=== PATIENT | female | born 1950 | race Caucasian/White ===

== ENCOUNTER 2021-06-25 08:44 | Outpatient (CLI) | payer MEDICARE, SELFPAY ==
--- NOTE | ~2021-06-25 | XR_ITS ---
XR hip RT 2V w AP pelvis 06/25/2021 09:02 Indication: Right hip pain Procedure: 3 views right hip including AP pelvis Comparison: No prior studies for comparison. Findings: There is mild osteoarthritis of the hips. There is lower lumbar spondylosis. No acute fract ure or traumatic malalignment. Impression: 1: No acute bone or joint abnormality. 2: Mild osteoarthritis of the hips. Reviewed, dictated and finalized at location [facility]. CHOOL ASSISTANT Impression: 1: No acute bone or joint abnormality. 2: Mild osteoarthritis of the hips.
== END 2021-06-25 08:45 | disposition home or self-care (01) ==
PROVIDERS: PCP Nurse Practitioner Family; Visit Provider Orthopaedic Surgery
DX: M16.11 Unilateral primary osteoarthritis, right hip (principal)
CPT/HCPCS: 73502

== ENCOUNTER 2021-11-17 09:13 | Emergency (ER) | payer MEDICARE, SELFPAY ==
--- NOTE | ~2021-11-17 | CT_ITS ---
EXAMINATION: CT brain wo con DATE: 11/17/2021 10:31 INDICATION: Fall from bed. No patient memory of fall or whether she struck her head. TECHNIQUE: Computed tomography (CT) of the head was performed without intravenous contrast. The mA wa s adjusted according to patient size. Iterative reconstruction technique was employed. Exam dose: 60 5.33 mGy-cm total exam DLP. COMPARISON: None FINDINGS: Bilateral carotid siphon internal carotid artery calcifications. There is nonspecific dimin ished attenuation of the subcortical and periventricular cerebral white matter, likely due to chronic small vessel ischemic changes. Minimal basal ganglia calcification on the left. No intracranial mass lesion or hemorrhage or cerebrovascular accident. No midline shift or mass effec t. No subdural or epidural hematoma. Moderate cerebral and cerebellar volume loss. Included paranasal sinuses and mastoid air cells are unremarkable. No fracture or bone destruction of the cranial vault. IMPRESSION: No skull fracture or acute intracranial finding Cerebral atherosclerosis and chronic small vessel ischemic changes of the cerebral white matter Reviewed, dictated and finalized at [facility]. Reviewed, dictated and finalized at location [facility]. IMPRESSION: No skull fracture or acute intracranial finding Cerebral atherosclerosis and chronic small vessel ischemic changes of the cereb ral white matter
[2021-11-17 09:15] VITALS: BP 152/63; PULSE 95; RESP 16; TEMP 37.2; O2SAT 95
--- NOTE | 2021-11-17 09:49 | ED.SKABFB ---
HPI - Skin/Abscess/Foreign Bdy General Chief complaint: Skin/Abscess/Foreign Body <Malathi Valel PA-C - Last Filed: 11/17/21 13:20> Stated complaint: Rash <Malathi Valle PA-C - Last Filed: 11/17/21 13:20> Time Seen by Provider: 11/17/21 09:28 <Malathi Valle PA-C - Last Filed: 11/17/21 13:20> Source: patient <HOLGER Ronquillo Last Filed: 11/17/21 13:20> Mode of arrival: ambulatory <HOLGER Ronquillo Last Filed: 11/17/21 13:20> Limitations: no limitations <Malathi Valle PA-C - Last Filed: 11/17/21 13:20> History of Present Illness HPI narrative: This is a 71-year-old female that presents to the emergency department for rash noted over the last couple of days. Reports she had a fever of 103. This was followed by developing a rash on her extremities. Reports this morning the rash on her lower legs started to look more purple which prompted her to be seen. No new medications. Her family member reports he found her on the floor in the middle of the night 2 nights ago. She is unsure why she was on the floor or how she got there. She denies any certain joint pain or injuries. Denies vomiting, numbness or weakness. <Malathi Valle PA-C - Last Filed: 11/17/21 13:20> Related Data Home medications: Home Medications Medication Instructions Recorded Confirmed amlodipine 10 mg tablet (Norvasc) 10 mg PO DAILY 06/01/21 08/08/21 atorvastatin 20 mg tablet (Lipitor) 20 mg PO DAILY 06/01/21 08/08/21 blood sugar diagnostic (True 06/01/21 08/08/21 Metrix Glucose Test Strip) carboxymethylcellulose sodium 0.5 1 drp EACH EYE BID 06/01/21 08/08/21 % eye drops in a dropperette (Refresh Plus) dulaglutide 1.5 mg/0.5 mL 1.5 mg subcut WEEKLY 06/01/21 08/08/21 subcutaneous pen injector (Trulicity) fenofibric acid (choline) 135 mg 135 mg PO DAILY 06/01/21 08/08/21 capsule,delayed release (Trilipix) insulin glargine 100 unit/mL (3 10 unit subcut BID 06/01/21 08/08/21 mL) subcutaneous pen (Lantus Solostar U-100 Insulin) krill oil 500 mg capsule mg PO 06/01/21 08/08/21 lancets 28 gauge (TRUEplus Lancets) 06/01/21 08/08/21 metformin 1,000 mg tablet 1,000 mg PO BIDWMEAL 06/01/21 08/08/21 metoprolol succinate 50 mg 75 mg PO DAILY 06/01/21 08/08/21 tablet,extended release 24 hr (Toprol XL) oxybutynin chloride 5 mg 5 mg PO DAILY 06/01/21 08/08/21 tablet,extended release 24 hr (Ditropan XL) pen needle, diabetic 31 gauge x 06/01/21 08/08/21 5/16 (TRUEplus Pen Needle) valsartan 160 1 tablet PO DAILY 06/01/21 08/08/21 mg-hydrochlorothiazide 12.5 mg tablet (Diovan HCT) meloxicam 15 mg tablet 15 mg PO DAILY 06/25/21 08/08/21 tramadol 50 mg tablet 50 mg PO Q6H PRN 06/25/21 08/08/21 <Malathi Valle PA-C - Last Filed: 11/17/21 13:20> Allergies/Adverse reactions: Allergies Allergy/AdvReac Type Severity Reaction Status Date / Time No Known Allergies Allergy Verified 08/08/21 14:35 <Malathi Valle PA-C - Last Filed: 11/17/21 13:20> Review of Systems Review of Systems: CONSTITUTIONAL: Reports fever GASTROINTESTINAL: Denies vomiting SKIN: Reports rash. Denies itching. MUSCULOSKELETAL: Denies back pain, joint pain, or myalgia. <Malathi Valle PA-C - Last Filed: 11/17/21 13:20> All systems reviewed & are unremarkable except as noted in HPI and below <Malathi Valle PA-C - Last Filed: 11/17/21 13:20> [facility] Past Medical History Medical History: Medical History Diabetes Hyperlipidemia Hypertension <Malathi Valle PA-C - Last Filed: 11/17/21 13:20> Surgical History Surgical History: Surgical History History of right knee joint replacement <Malathi Valle PA-C - Last Filed: 11/17/21 13:20> Social History Social History: Social History
[2021-11-17 10:04] LABS: Basophils Percent Auto 0.3 % (0.2-1.2); Eosinophils Absolute Auto 0.2 K/mm3 (0-0.3); Eosinophils Percent Auto 3.4 % (0-4.4); Hematocrit 36.7 % (37.0-47.0); Hemoglobin 11.9 g/dL (12.0-15.0); Immature Granulocyte Absolute 0.02 K/mm3 (0.00-0.031); Immature Granulocyte Percent A 0.3 % (0-0.5); Lymphocytes Absolute Auto 0.99 K/mm3 (0.9-3.2); Lymphocytes Percent Auto 15.5 % (18.3-44.2); Mean Corpuscular HGB Conc 32.4 g/dl (32-36); Mean Corpuscular Hemoglobin 30.4 pg (26-34); Mean Corpuscular Volume 93.6 fl (80-100); Mean Platelet Volume 9.5 fl (7.4-10.4); Monocytes Absolute Auto 0.3 K/mm3 (0.1-0.6); Monocytes Percent Auto 4.4 % (2.6-8.5); Neutrophils Absolute Auto 4.9 K/mm3 (1.3-6.7); Neutrophils Percent Auto 76.1 % (45.5-73.1); Platelet Count Result 127 k/mm3 (150-375); Red Blood Count 3.92 M/mm3 (4.2-5.4); White Blood Count 6.4 K/mm3 (4.5-10.0)
[2021-11-17 10:16] LABS: INR 1.3; Prothrombin Time 15.2 Seconds (11.1-14.7)
[2021-11-17 10:16] LABS: Alanine Aminotransferase 37 U/L (6-35); Alkaline Phosphatase 35 U/L (38-126); Anion Gap 8 mmol/L (8-16); Aspartate Amino Transferase 44 U/L (14-36); Blood Urea Nitrogen 19 mg/dL (7-17); CRP 6.9 mg/dL (<1.0); Calcium 8.9 mg/dL (8.4-10.2); Carbon Dioxide 27 mmol/L (22-30); Chloride 99 mmol/L (98-107); Estimated CRCL calculation 63 ml/min; Estimated Glomerular Filt Rate > 60; Glucose 182 mg/dL (65-110); Potassium 3.6 mmol/L (3.4-5.0); Sodium 134 mmol/L (137-145)
[2021-11-17 10:17] LABS: Partial Thromboplastin Time 29.1 SECONDS (22.3-36.8)
[2021-11-17 10:32] LABS: Mucus Urine Rare /lpf; Squamous Epithelial Cell Urine Few /hpf (Few); WBC Urine >75 /hpf
[2021-11-17 10:35] LABS: Appearance Urine Cloudy (Clear); Bilirubin Urine 1+ (Negative); Blood Urine 1+ (Negative); Color Urine Yellow (Yellow); Glucose Urine UA Negative (Negative); Ketones Urine Negative (Negative); Leukocyte Esterase Ur 3+ LEU/UL (Negative); Nitrate Urine Negative (Negative); Protein Urine Trace mg/dL (Negative); Specific Grav Ur 1.025 (1.001-1.035); Urobilinogen Urine 0.2 mg/dL (<2.0); pH Urine 5.5 (5.0-9.0)
[2021-11-17 10:36] LABS: Add Urine Microscopic? YES
[2021-11-17 10:40] LABS: SARS-CoV-2 RNA PCR Negative
[2021-11-17 10:52] LABS: Erythrocyte Sedimentation Rate 47 mm/hr (0-20)
== END 2021-11-17 13:51 | disposition home or self-care (01) ==
PROVIDERS: Physician Assistant; Emergency Provider Emergency Medicine; PCP Nurse Practitioner Family
DX: N30.00 Acute cystitis without hematuria (principal); R21 Rash and other nonspecific skin eruption; Z20.822 Contact with and (suspected) exposure to COVID-19; E11.9 Type 2 diabetes mellitus without complications; E78.5 Hyperlipidemia, unspecified; I10 Essential (primary) hypertension; Z87.891 Personal history of nicotine dependence; Z96.651 Presence of right artificial knee joint; I67.2 Cerebral atherosclerosis; Z79.84 Long term (current) use of oral hypoglycemic drugs; Z79.4 Long term (current) use of insulin; Z79.899 Other long term (current) drug therapy
CPT/HCPCS: 36415; 70450; 80053; 81001; 85025; 85610; 85652; 85730; 86140; 87086; 87088; 99284; C9803; U0003; U0005

== ENCOUNTER 2022-12-10 15:34 | Outpatient (RCR) | payer MEDICARE, SELFPAY ==
--- NOTE | 2022-12-10 16:21 | PTOPEVAL1 ---
Assessment and note entered by Eduardo Betancourt Evaluation Information Assessment Status Evaluation Diagnosis vertigo, imbalance Onset 12/09/22 Subjective Information Pt. reports that she first began developing dizziness in July of 2020. Pt. reports that she has been to a specialist, but has not been given a diagnosis. She reports that she cannot lay in her bed without getting dizzy. She reports that looking up overhead will also trigger her dizziness. She reports that she does get nauseous on occasion. She states that sleeping upright on the sofa is the best way for her to sleep. She reports that her goal is to be able to get rid of her dizziness. Reported Pain Level Pain Score 0: Self Report Assessment PT Clinical Summary Pt. enters the clinic with positive testing for left sided BPPV. She responds well to Belem manuever with reduction in dizziness and nystagmus . Continued skilled PT is indicated for monitoring pt. progress with home treatment and to continues to reduce dizzziness with IADL's. Plan of Care Interventions Neuro Re-education,Patient/Caregiver Educati, Therapeutic Activities,Therapeutic Exercise Other Interventions canalith repositioning PT Services Indicated Yes Treatment Frequency and Continue Rx for 2 additional visits focusing on Duration reduction of dizziness and advancing to [place] and [place] exercise as indicated. These treatments will address the objective and functional deficits as defined above. The patient will be advanced safely and appropriately in order for the patient to progress towards his/her prior level of function. Additional exercises will be introduced and as well as a comprehensive home exercise program upon discharge, if needed, ?to ensure carryover of functional gains achieved in the clinic. This treatment plan has been reviewed and agreement upon by the patient.
--- NOTE | 2022-12-10 16:21 | OPREHPOC ---
Outpatient Therapy Plan of Care This is a Multidisciplinary Plan of Care that may contain components documented by all disciplines (PT, OT, and ST.) PT Problem 1 PT Problem #1 Knowledge Deficit PT Goal 1 Goal Independent with performance of the home [place] Manuever Target Visit 3 PT Problem 2 PT Problem #2 Impaired Vestibular Syste PT Goal 1 Goal Reduce DHI score by 20-30 points indicating decreased dizziness Target Visit 3 PT Goal 2 Goal Negative Nicola Halpike to the left. Target Visit 3 PT Problem 3 PT Problem #3 Impaired Functional Mobil PT Goal 1 Goal Report no episode of dizziness for a 1 week period with all IADL's and overhead activities. Target Visit 3
== END 2022-12-16 17:35 | disposition home or self-care (01) ==
LOC: CHSPT 15:34
PROVIDERS: Visit Provider Nurse Practitioner Family
DX: H81.12 Benign paroxysmal vertigo, left ear (principal); R26.89 Other abnormalities of gait and mobility
CPT/HCPCS: 95992; 97161

== ENCOUNTER 2025-01-05 10:31 | Outpatient (RCR) | payer MEDICARE, SELFPAY ==
--- NOTE | 2025-01-05 13:07 | BUPTOPEVAL1 ---
Assessment and note entered by JT File, PT Evaluation Information Assessment Status Evaluation ICD-10 Condition Codes (PT) Dizziness and Giddiness R42,BPPV right ear H81.11, BPPV H81.12 Subjective Information patient reports she fell down while watering her plants. she reports she was fine for the first few plants. she reports uses one small cup at a time to water her plants. she reports the 2nd or 3rd one she went to fix something on the hook and fell forward. she reports she hit her head and slid across the dirt. she reports she saw the MD the next morning. she was told there they thought she may be having issues with her vertigo again. she reports she is not driving due to her families wishes. she reports she does get dizzy during certain movements. she reports she can fell the dizziness coming on. she reports when she gets dizzy it may last 3-4 minutes or longer, and she gets ringing in her head and ears. she reports she also has pain in the back of the head down the neck. she reports when she is dizzy she feels herself going around and around until it passes. Reported Pain Level Pain Score 0: Self Report Assessment PT Clinical Summary mrs. abbasi is a 74 yo woman who presents to skilled PT services for evaluation and treatment of dizziness and BPPV following a fall at home. she presents today with negative nidia hallpike testing, WFL cervical rom, negative BP issues during transfers, and only a moderate fall risk during the tinetti test. at this time, patient does not appear to have any objective dizziness or BPPV symptoms. she will benefit from one additional follow-up/re-test to test for return of symptoms since they often come and go. Plan of Care Interventions Patient/Caregiver Education PT Services Indicated Yes Treatment Frequency and follow up with patient 1 more visit to re-test for Duration symptoms. These treatments will address the objective and functional deficits as defined above. The patient will be advanced safely and appropriately in order for the patient to progress towards his/her prior level of function. Additional exercises will be introduced and as well as a comprehensive home exercise program upon discharge, if needed, ?to ensure carryover of functional gains achieved in the clinic. This treatment plan has been reviewed and agreement upon by the patient.
--- NOTE | 2025-01-14 09:46 | OPREHPOC ---
Outpatient Therapy Plan of Care This is a Multidisciplinary Plan of Care that may contain components documented by all disciplines (PT, OT, and ST.) PT Problem 1 PT Problem #1 Knowledge Deficit PT Goal 1 Goal / Goal Update follow up with PT for re-testing to see if any symptoms have returned. Target Visit 2 Progress Met
--- NOTE | 2025-01-14 09:46 | PTOPDC ---
Assessment and note entered by JT File, PT Evaluation Information Assessment Status Discharge ICD-10 Condition Codes (PT) Dizziness and Giddiness R42,BPPV right ear H81.11, BPPV H81.12 Subjective Information patient reports she has had no symptoms of dizziness since her intial evaluation. she reports she is not bothered by it anymore with any activity. Assessment PT Clinical Summary mrs. abbasi presents to skilled PT services for re-evaluation of vertigo and dizziness. she presents with no symptoms and negative nidia hallpike testing. she will DC skilled PT today, and was educated to return to PT if she has a change in status later on. Plan of Care PT Services Indicated Yes
== END 2025-01-10 20:00 | disposition home or self-care (01) ==
LOC: CHSPT 10:31
DX: H81.10 Benign paroxysmal vertigo, unspecified ear (principal)
CPT/HCPCS: 97110; 97161; 97530